=== PATIENT | female | born 1975 | race Caucasian/White ===

== ENCOUNTER → 2017-06-15 | Outpatient (CLI) | payer MEDICAID ==
--- NOTE | 2017-06-15 19:09 | MR ---
EXAMINATION TYPE: MR shoulder LT wo con DATE OF EXAM: 06/15/2017 COMPARISON: Outside left shoulder x-ray May 26, 2017 HISTORY: Pain in left shoulder for 4 months with difficulty raising over head. TECHNIQUE: Multiplanar, multisequence imaging of the left shoulder is performed without contrast. FINDINGS: Rotator Cuff: Supraspinatus and infraspinatus tendons are both intact to the attachment. Subscapulari s tendon is intact. Rotator cuff muscular bulk is maintained. Acromioclavicular Joint: There is moderate joint space loss and spurring acromioclavicular joint. Und erlying fat plane is maintained. Glenohumeral Joint: There is small to moderate glenohumeral joint effusion. History Labrum: The labrum appears grossly intact given limitation of non-arthrogram study. Biceps Tendon: The long head of biceps is in normal location within bicipital groove. Bone marrow signal: No focal abnormal marrow signal is appreciated. Other: No additional significant abnormality is appreciated. IMPRESSION: No rotator cuff or labral tear is seen. Fairly moderate degenerative changes acromioclavi cular joint without underlying impingement.
== END | disposition home or self-care (01) ==
LOC: RADMRIMAIN 16:30
PROVIDERS: ATTEND Orthopaedic Surgery
DX: M25.512 Pain in left shoulder (principal)

== ENCOUNTER 2017-06-29 09:05 | Day surgery (SDC) | payer MEDICAID ==
[2017-06-28 08:29] VITALS: BMI 40.3
--- NOTE | 2017-06-28 09:11 | HP ---
HISTORY AND PHYSICAL CHIEF COMPLAINT: Left shoulder pain. 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 She notes it is worsening. She has a difficult time with any attempted overhead use. She is having significant night symptoms. She has tried multiple medications for this. She denies any specific traumatic event. PAST MEDICAL HISTORY: Negative. PAST SURGICAL HISTORY: Negative. CURRENT MEDICATIONS: Protonix and ibuprofen along with tramadol. ALLERGIES: She denies drug allergies. FAMILY HISTORY: Significant for diabetes. SOCIAL HISTORY: Negative for current tobacco or alcohol use. REVIEW OF SYSTEMS: Sixteen-point review of systems otherwise reviewed and is noncontributory. PHYSICAL EXAMINATION: On examination, the patient is approximately 5 feet 9 inches, 274 pounds of endomorphic habitus. HEENT exam is nonfocal. Neck is supple. On examination of her left shoulder, she is tender about the anterior subacromial space. She has moderate subacromial crepitus. Active range of motion of the left shoulder, forward elevation 95 degrees, external rotation with arm at side 60 degrees, internal rotation to L1. Motor strength is 5/5 for abduction and external rotation. Impingement test and Neer test are positive. Her distal neurovascular exam appears intact in the left upper extremity. MRI report for the left shoulder from 06/15/2017 shows an intact rotator cuff. IMPRESSION: Symptomatic left shoulder adhesive capsulitis. RECOMMENDATIONS: I talked to the patient at length regarding her condition and treatment options. At this point, she is quite symptomatic and opts to proceed with manipulation under anesthesia with subacromial cortisone injection. Risks and benefits were discussed at length in layman's terms. We will likely perform that as an outpatient procedure utilizing IV sedation. She will be scheduled to start formal therapy directly after the procedure. MMODL / IJN: [id number] /
[~2017-06-29 09:05] MED LIST: DEXAMETHASONE SOD PHOSPHATE 10 MG/ML 1 ML VIAL IV ONE; MIDAZOLAM 2 MG/2 ML VIAL IV PRN; ONDANSETRON ODT 4 MG TAB PO ONE; SCOPOLAMINE 1.5MG/72HR PATCH TRANSDERM ONE
[2017-06-29 09:48] VITALS: TEMP 98.2
[2017-06-29] MEDS: LACTATED RINGERS 1,000 ML IV SCH ×2 (09:56→10:02)
[2017-06-29] MEDS ORDERED: ONDANSETRON 4 MG/2 ML VIAL IVP ONE (10:01)
[2017-06-29] MEDS ORDERED: KETOROLAC 30 MG/ML 1 ML VIAL IVP ONE (10:11)
[2017-06-29] MEDS ORDERED: PROPOFOL 10 MG/ML 20 ML VIAL IV ONE (10:28)
[2017-06-29] MEDS ORDERED: LIDOCAINE 1% INJ 10MG/ML (20 ML MDV) ONE (10:28)
[2017-06-29] MEDS ORDERED: BUPIVACAINE (PF) 0.25% 30 ML VIAL INTRAARTIC ONE (10:33)
[2017-06-29] MEDS ORDERED: methylPREDNISolone ACETATE 80 MG/ML 1 ML VIAL INTRAARTIC ONE (10:33)
--- NOTE | 2017-06-29 10:40 | P.OP ---
Date of Procedure: 06/29/17 Preoperative Diagnosis: Left shoulder adhesive capsulitis Postoperative Diagnosis: Same Procedure(s) Performed: Manipulation under anesthesia left shoulder with subacromial cortisone injection Anesthesia: MAC Surgeon: Tam Vidales Estimated Blood Loss (ml): 0 Pathology: none sent Condition: stable Disposition: PACU Indications for Procedure: The patient's a 42-year-old female who presents with progressive left shoulder pain and stiffness despite conservative measures. Clinically she was noted to have significant adhesive capsulitis. A discussion of the risks and benefits of manipulation under anesthesia with subacromial cortisone injection was made with patient. She opted to proceed. Risks of this procedure to include fracture, dislocation, possible tendon rerupture, possible recurrence of stiffness and need for subsequent procedures was discussed. Informed consent was obtained. Operative Findings: As below Description of Procedure: The patient was brought to the cover room, and after induction of IV sedation I then gently manipulated her left shoulder. First with her arm at her side obtain 70 of external rotation. Moderate adhesions were encountered. I then obtained full forward elevation. Again there were moderate adhesions encountered. I felt there was adequate pentecostal of motion at this point. The posterior shoulder was prepped with ChloraPrep. 80 mg of Depo-Medrol along with 5 mL of quarter percent Marcaine was injected into the posterior subacromial space. The patient was then monitored until fully awake. No complications were incurred. There was no blood loss.
[2017-06-29] MEDS: fentaNYL (PF) 50 MCG/ML 2 ML AMP IV PRN ×2 (10:44→10:49)
[2017-06-29] MEDS: MEPERIDINE 50 MG/ML SYRINGE IVP ONE ×2 (10:53→11:02)
[2017-06-29] MEDS ORDERED: MORPHINE SULFATE 4 MG/ML SYRINGE IVP ONE ×2 (11:11→11:21)
[2017-06-29 12:03] VITALS: BP 127/84; PULSE 62; RESP 20
== END 2017-06-29 12:15 | disposition home or self-care (01) ==
LOC: OR 09:05
PROVIDERS: ATTEND Orthopaedic Surgery
DX: M75.02 Adhesive capsulitis of left shoulder (principal); K21.9 Gastro-esophageal reflux disease without esophagitis; Z87.891 Personal history of nicotine dependence; Z79.1 Long term (current) use of non-steroidal anti-inflammatories (NSAID); Z79.891 Long term (current) use of opiate analgesic; Z79.899 Other long term (current) drug therapy
CPT/HCPCS: 23700; 81025; J2270; J1040; J1100; J2175; J2405; J2001; J3010; J1885; J2704

== ENCOUNTER → 2017-12-01 | Outpatient (CLI) | payer MEDICAID | END | disposition home or self-care (01) | LOC: RADMRIMAIN 17:43 | PROVIDERS: ATTEND Orthopaedic Surgery | DX: Z53.9 Procedure and treatment not carried out, unspecified reason (principal) ==

== ENCOUNTER 2019-10-09 13:33 | Emergency (ER) | payer MEDICAID ==
[2019-10-09 13:41] VITALS: TEMP 98
[2019-10-09] MEDS ORDERED: SODIUM CHLORIDE 0.9% 1,000 ML IV STA (14:29)
[2019-10-09] MEDS ORDERED: KETOROLAC 15 MG/ML 1 ML VIAL IVP STA (14:29)
--- NOTE | 2019-10-09 14:39 | ED ---
General Adult HPI - General Chief complaint: Abdominal Pain Stated complaint: Abd Pain Time Seen by Provider: 10/09/19 14:04 Source: patient, RN notes reviewed Mode of arrival: ambulatory Limitations: no limitations - History of Present Illness Initial comments: 44-year-old female with a past medical history of hiatal hernia, GERD, presents to the emergency department for mid left abdominal pain. Patient reports this has been ongoing for about a week and a half. Patient reports that about a week ago she started on Cipro and Flagyl because this felt like a flare up of her diverticulitis. However this has not seemed to help. She denies any diarrhea. Denies nausea vomiting. Denies alleviating or aggravating factors. Patient denies fevers or chills. She denies radiating pain to the chest or shortness of breath.Patient has no other complaints at this time including shortness of breath, chest pain, headache, or visual changes. - Related Data Home Medications Medication Instructions Recorded Confirmed Esomeprazole Magnesium [NexIUM 22.3 mg PO DAILY 08/07/15 06/29/17 24Hr] Cholecalciferol (Vitamin D3) 2,000 unit PO DAILY 06/28/17 06/29/17 [Vitamin D3] Magnesium 200 mg PO DAILY 06/28/17 06/29/17 Multivitamins, Thera [Multivitamin 1 tab PO DAILY 06/28/17 06/29/17 (formulary)] Naproxen Sodium [Aleve] 220 mg PO Q12HR 06/28/17 06/29/17 traMADol HCl [Ultram] 50 mg PO Q6HR PRN 06/28/17 06/29/17 Allergies Allergy/AdvReac Type Severity Reaction Status Date / Time No Known Allergies Allergy Verified 10/09/19 13:39 Review of Systems ROS Statement: Those systems with pertinent positive or pertinent negative responses have been documented in the HPI. ROS Other: All systems not noted in ROS Statement are negative. Past Medical History Past Medical History: GERD/Reflux Additional Past Medical History / Comment(s): HIATAL HERNIA History of Any Multi-Drug Resistant Organisms: None Reported Past Surgical History: Tonsillectomy Additional Past Surgical History / Comment(s): Colonoscopy Past Anesthesia/Blood Transfusion Reactions: No Reported Reaction Past Psychological History: No Psychological Hx Reported Past Alcohol Use History: Occasional Past Drug Use History: None Reported - Past Family History Mother Family Medical History: No Reported History General Exam Limitations: no limitations General appearance: alert, in no apparent distress Head exam: Present: atraumatic, normocephalic, normal inspection Eye exam: Present: normal appearance, PERRL, EOMI. Absent: scleral icterus, conjunctival injection, periorbital swelling ENT exam: Present: normal exam, mucous membranes moist Neck exam: Present: normal inspection, full ROM. Absent: tenderness, meningismus, lymphadenopathy Respiratory exam: Present: normal lung sounds bilaterally. Absent: respiratory distress, wheezes, rales, rhonchi, stridor Cardiovascular Exam: Present: regular rate, normal rhythm, normal heart sounds. Absent: systolic murmur, diastolic murmur, rubs, gallop, clicks GI/Abdominal exam: Present: soft, tenderness (tenderness noted to the left mid abdomen however no guarding or rebound.), normal bowel sounds. Absent: distended, guarding, rebound, rigid Course Vital Signs 10/09/19 13:37 Temperature 98.0 F Pulse Rate 86 Respiratory 18 Rate Blood Pressure 153/103 O2 Sat by Pulse 97 Oximetry EKG Findings - EKG Comments: EKG Findings:: normal sinus rhythm, ventricular rate 72, IA interval 164, QTc 400 Medical Decision Making - Medical Decision Making Vitals are stable. Patient has minimal abdominal tenderness noted in the mid to upper left abdomen. CBC is unremarkable. CMP unremarkable. Troponin is negative. Urinalysis does not show any obvious evidence of infection and is contaminated with squamous cells. Patient does not have any dysuria and is a lready on Cipro. CT abdomen and pelvis with contrast was obtained which showed a left ovarian cystic lesion. Bowels do not show any evidence of inflammation. Discussed findings with patient. She will continue Cipro and Flagyl as prescribed by primary care in case this has been treating a diverticulitis that has improved since initiation. I did discuss the ovarian cyst. I recommended she follow up with her primary care regarding all findings and to return here if she has any worsening symptoms. On evaluation patient is feeling much better and is comfortable with discharge home. - Lab Data Result diagrams: 10/09/19 14:38 10/09/19 14:38 Lab Results 10/09/19 10/09/19 10/09/19 Range/Units 14:38 14:38 14:38 WBC 10.2 (3.8-10.6) k/uL RBC 4.96 (3.80-5.40) m/uL Hgb 13.7 (11.4-16.0) gm/dL Hct 41.4 (34.0-46.0) % MCV 83.5 (80.0-100.0) fL MCH 27.6 (25.0-35.0) pg MCHC 33.1 (31.0-37.0) g/dL RDW 13.7 (11.5-15.5) % Plt Count 422 (150-450) k/uL Neutrophils % 71 % Lymphocytes % 21 % Monocytes % 5 % Eosinophils % 2 % Basophils % 1 % Neutrophils # 7.2 (1.3-7.7) k/uL Lymphocytes # 2.1 (1.0-4.8) k/uL Monocytes # 0.5 (0-1.0) k/uL Eosinophils # 0.2 (0-0.7) k/uL Basophils # 0.1 (0-0.2) k/uL Sodium 137 (137-145) mmol/L Potassium 4.2 (3.5-5.1) mmol/L Chloride 109 H (98-107) mmol/L Carbon Dioxide 18 L (22-30) mmol/L Anion Gap 10 mmol/L BUN 9 (7-17) mg/dL Creatinine 0.65 (0.52-1.04) mg/dL Est GFR (CKD-EPI)AfAm >90 (>60 ml/min/1.73 sqM) Est GFR (CKD-EPI)NonAf >90 (>60 ml/min/1.73 sqM) Glucose 111 H (74-99) mg/dL Plasma Lactic Acid Cyril (0.7-2.0) mmol/L Calcium 9.6 (8.4-10.2) mg/dL Total Bilirubin 0.6 (0.2-1.3) mg/dL AST 23 (14-36) U/L ALT 16 (4-34) U/L Alkaline Phosphatase 85 (38-126) U/L Troponin I (0.000-0.034) ng/mL Total Protein 7.5 (6.3-8.2) g/dL Albumin 4.5 (3.5-5.0) g/dL Amylase 47 (30-110) U/L Lipase 49 (23-300) U/L Urine Color Judy Urine Appearance Clear (Clear) Urine pH 6.0 (5.0-8.0) Ur Specific Mcgraw 1.030 (1.001-1.035) Urine Protein 1+ H (Negative) Urine Glucose (UA) Negative (Negative) Urine Ketones Negative (Negative) Urine Blood Negative (Negative) Urine Nitrite Negative (Negative) Urine Bilirubin Negative (Negative) Urine Urobilinogen 2.0 (<2.0) mg/dL Ur Leukocyte Esterase Large (Negative) Urine RBC 1 (0-5) /hpf Urine WBC 8 H (0-5) /hpf Ur Squamous Epith Cells 6 H (0-4) /hpf Urine Bacteria Occasional H (None) /hpf Urine Mucus Moderate H (None) /hpf 10/09/19 10/09/19 Range/Units 14:38 14:38 WBC (3.8-10.6) k/uL RBC (3.80-5.40) m/uL Hgb (11.4-16.0) gm/dL Hct (34.0-46.0) % MCV (80.0-100.0) fL MCH (25.0-35.0) pg MCHC (31.0-37.0) g/dL RDW (11.5-15.5) % Plt Count (150-450) k/uL Neutrophils % % Lymphocytes % % Monocytes % % Eosinophils % % Basophils % % Neutrophils # (1.3-7.7) k/uL Lymphocytes # (1.0-4.8) k/uL Monocytes # (0-1.0) k/uL Eosinophils # (0-0.7) k/uL Basophils # (0-0.2) k/uL Sodium (137-145) mmol/L Potassium (3.5-5.1) mmol/L Chloride (98-107) mmol/L Carbon Dioxide (22-30) mmol/L Anion Gap mmol/L BUN (7-17) mg/dL Creatinine (0.52-1.04) mg/dL Est GFR (CKD-EPI)AfAm (>60 ml/min/1.73 sqM) Est GFR (CKD-EPI)NonAf (>60 ml/min/1.73 sqM) Glucose (74-99) mg/dL Plasma Lactic Acid Cyril 1.0 (0.7-2.0) mmol/L Calcium (8.4-10.2) mg/dL Total Bilirubin (0.2-1.3) mg/dL AST (14-36) U/L ALT (4-34) U/L Alkaline Phosphatase (38-126) U/L Troponin I <0.012 (0.000-0.034) ng/mL Total Protein (6.3-8.2) g/dL Albumin (3.5-5.0) g/dL Amylase (30-110) U/L Lipase (23-300) U/L Urine Color Urine Appearance (Clear) Urine pH (5.0-8.0) Ur Specific Mcgraw (1.001-1.035) Urine Protein (Negative) Urine Glucose (UA) (Negative) Urine Ketones (Negative) Urine Blood (Negative) Urine Nitrite (Negative) Urine Bilirubin (Negative) Urine Urobilinogen (<2.0) mg/dL Ur Leukocyte Esterase (Negative) Urine RBC (0-5) /hpf Urine WBC (0-5) /hpf Ur Squamous Epith Cells (0-4) /hpf Urine Bacteria (None) /hpf Urine Mucus (None) /hpf Disposition Clinical Impression: Abdominal pain, Ovarian cyst Disposition: HOME SELF-CARE Condition: Good Instructions (If sedation given, give patient instructions): Abdominal Pain (ED) Additional Instructions: please continue antibiotics as given by your primary care provider. Please follow-up with primary care regarding abdominal pain as well as finding of ovarian cyst. If you have any worsening symptoms return to the emergency room. Is patient prescribed a controlled substance at d/c from ED?: No Referrals: Dunia Paula MD [Primary Care Provider] - 1-2 days Time of Disposition: 15:57
[2019-10-09 14:51] LABS: Basophils # (A) 0.1 k/uL (0-0.2); Basophils % (A) 1 %; Eosinophils # (A) 0.2 k/uL (0-0.7); Eosinophils % (A) 2 %; HCT 41.4 % (34.0-46.0); HGB 13.7 gm/dL (11.4-16.0); Lymphocytes # (A) 2.1 k/uL (1.0-4.8); Lymphocytes % (A) 21 %; MCH 27.6 pg (25.0-35.0); MCHC 33.1 g/dL (31.0-37.0); MCV 83.5 fL (80.0-100.0); Monocytes # (A) 0.5 k/uL (0-1.0); Monocytes % (A) 5 %; Neutrophils # (A) 7.2 k/uL (1.3-7.7); Neutrophils % (A) 71 %; Platelet Count 422 k/uL (150-450); RBC 4.96 m/uL (3.80-5.40); RDW 13.7 % (11.5-15.5); WBC 10.2 k/uL (3.8-10.6)
[2019-10-09 14:57] LABS: Appearance,Urine Clear (Clear); Color,Urine Amber; Glucose,Urine (UA) Negative (Negative); Ketones,Urine Negative (Negative); Protein,Urine 1+ (Negative)
[2019-10-09 14:58] LABS: Bilirubin,Urine Negative (Negative); Blood,Urine Negative (Negative); Leukocyte Esterase,Urine Large (Negative); Nitrite,Urine Negative (Negative)
[2019-10-09 14:59] LABS: ALT 16 U/L (4-34); AST 23 U/L (14-36); African American GFR (CKD) >90 (>60 ml/min/1.73 sqM); Albumin 4.5 g/dL (3.5-5.0); Alkaline Phosphatase 85 U/L (38-126); Amylase 47 U/L (30-110); Anion Gap 10 mmol/L; Blood Urea Nitrogen 9 mg/dL (7-17); Calcium 9.6 mg/dL (8.4-10.2); Carbon Dioxide 18 mmol/L (22-30); Chloride 109 mmol/L (98-107); Glucose 111 mg/dL (74-99); Lipase 49 U/L (23-300); Non-African American GFR(CKD) >90 (>60 ml/min/1.73 sqM); Potassium 4.2 mmol/L (3.5-5.1); Sodium 137 mmol/L (137-145); Total Bilirubin 0.6 mg/dL (0.2-1.3); Total Protein 7.5 g/dL (6.3-8.2)
[2019-10-09 15:04] LABS: Bacteria,Urine Occasional /hpf; Mucus,Urine Moderate /hpf; RBC,Urine 1 /hpf (0-5); Squamous Epithelial Cell,Urine 6 /hpf (0-4); WBC,Urine 8 /hpf (0-5)
--- NOTE | 2019-10-09 15:19 | CT ---
EXAMINATION TYPE: CT abdomen pelvis w con DATE OF EXAM: 10/09/2019 COMPARISON: July 25, 2015 HISTORY: Generalized abdominal pain. CT DLP: 3024.4 mGycm CONTRAST: CT scan of the abdomen and pelvis is performed without Oral Contrast and with IV Contrast, patient in jected with 100 mL of Isovue 300. FINDINGS: LUNG BASES-: No visible nodule. No infiltrate. LIVER/GB: No calcified gallstones. No space occupying hepatic lesion. Biliary tree is of normal ca liber. PANCREAS: No inflammation. No distinct mass. SPLEEN: No splenic enlargement. No lesion seen. ADRENALS: No nodule. No thickening. KIDNEYS/BLADDER: No hydronephrosis. No nephrolithiasis. No distinct renal mass. Urinary bladder g rossly unremarkable. BOWEL: Normal appendix. Normal bowel caliber. No inflammation. GENITAL ORGANS: 3.3 cm left ovarian cystic lesion is noted. The right ovary and uterus are unremarka ble. LYMPH NODES: No greater than 1cm abdominal or pelvic lymph nodes are appreciated. AORTA: No significant abnormality. OSSEOUS STRUCTURES: No significant abnormality is seen. OTHER: No significant additional abnormality is seen. IMPRESSION: 1. Left ovarian cystic lesion as noted. Otherwise unremarkable study.
[2019-10-09 16:30] VITALS: BP 123/86; PULSE 86; RESP 16
== END 2019-10-09 16:25 | disposition home or self-care (01) ==
LOC: EC 13:33
DX: N83.202 Unspecified ovarian cyst, left side (principal); K21.9 Gastro-esophageal reflux disease without esophagitis; Z79.899 Other long term (current) drug therapy; Z87.19 Personal history of other diseases of the digestive system
CPT/HCPCS: 36415; 93005; 80053; 82150; 83605; 83690; 84484; 85025; 81001; 74177; 99284; 96374; 96361; J1885; Q9967

== ENCOUNTER → 2020-08-09 | Outpatient (CLI) | payer MEDICAID ==
[2020-08-09 13:33] LABS: Basophils % (A) 0 %; Eosinophils # (A) 0.1 k/uL (0-0.7); Eosinophils % (A) 2 %; HCT 35.8 % (34.0-46.0); HGB 11.7 gm/dL (11.4-16.0); Lymphocytes # (A) 1.5 k/uL (1.0-4.8); Lymphocytes % (A) 30 %; MCH 27.7 pg (25.0-35.0); MCHC 32.7 g/dL (31.0-37.0); MCV 84.8 fL (80.0-100.0); Mean Platelet Volume 7.6; Monocytes # (A) 0.3 k/uL (0-1.0); Monocytes % (A) 5 %; Neutrophils # (A) 3.1 k/uL (1.3-7.7); Neutrophils % (A) 61 %; Platelet Count 350 k/uL (150-450); RBC 4.22 m/uL (3.80-5.40); RDW 14.2 % (11.5-15.5); WBC 5.1 k/uL (3.8-10.6)
== END | disposition home or self-care (01) ==
LOC: LABPAT 13:05
PROVIDERS: ATTEND Obstetrics & Gynecology
DX: Z01.810 Encounter for preprocedural cardiovascular examination (principal); Z01.812 Encounter for preprocedural laboratory examination; N92.0 Excessive and frequent menstruation with regular cycle; I10 Essential (primary) hypertension; N94.6 Dysmenorrhea, unspecified
CPT/HCPCS: 36415; 85025

== ENCOUNTER 2020-08-13 07:55 | Day surgery (SDC) | payer MEDICAID ==
[2020-08-08 16:17] VITALS: BMI 45.8
[~2020-08-13 07:55] MED LIST changes: -DEXAMETHASONE SOD PHOSPHATE 10 MG/ML 1 ML VIAL IV ONE; +DEXAMETHASONE SOD PHOSPHATE 4 MG/ML 1 ML VIAL IV ONE; +HYDROmorphone 0.5 MG/0.5 ML SYRINGE IVP PRN; +LACTATED RINGERS 1,000 ML IV SCH; +ONDANSETRON 4 MG/2 ML VIAL IVP ONE; -ONDANSETRON ODT 4 MG TAB PO ONE; +Pre Op ABX Message 1 EACH MISC MISCELLANE ONE
[2020-08-13] MEDS ORDERED: LIDOCAINE 1% (10MG/ML) FOR IV START INTRADERMA ONE (08:25)
[2020-08-13] MEDS ORDERED: KETOROLAC 15 MG/ML 1 ML VIAL ONE (08:40)
[2020-08-13] MEDS ORDERED: ALBUTEROL HFA INHALER INHALATION ONE (08:40)
[2020-08-13] MEDS ORDERED: PROPOFOL 10 MG/ML 20 ML VIAL IV ONE (08:40)
[2020-08-13] MEDS ORDERED: fentaNYL (PF) 50 MCG/ML 2 ML AMP ONE (08:40)
[2020-08-13] MEDS ORDERED: HYDROmorphone (PF) 1 MG/ML ONE (08:40)
[2020-08-13] MEDS ORDERED: MIDAZOLAM 2 MG/2 ML VIAL ONE (08:40)
[2020-08-13] MEDS ORDERED: LIDOCAINE 1% INJ 10MG/ML (20 ML MDV) ONE (08:40)
[2020-08-13] MEDS ORDERED: SUCCINYLCHOLINE CHLORIDE 100 MG/5 ML SYR IV ONE (08:40)
--- NOTE | 2020-08-13 09:15 | P.OP ---
Date of Procedure: 08/13/20 Preoperative Diagnosis: Menorrhagia, dysmenorrhea Postoperative Diagnosis: Endometrial polyps Procedure(s) Performed: Hysteroscopy, dilatation and curettage, polypectomy, NovaSure endometrial ablation Anesthesia: STUART Surgeon: Keturah Izquierdo Estimated Blood Loss (ml): 10 IV fluids (ml): 400 Urine output (ml): 50 Pathology: other (Polyps and endometrial curettings) Condition: stable Disposition: PACU Operative Findings: Small endometrial polyps, negative adnexa to palpation. Description of Procedure: Patient is brought to the operating suite where a general anesthetic is administered without difficulty. The appropriate timeout is performed to assure the proper patient and procedural identification. Urine hCG is negative. Patient is placed in the dorsal lithotomy position, the cervix, vagina, and perineal bodies are all prepped and draped in usual sterile fashion. Examination under anesthesia reveals a small anteverted uterus, negative adnexa bilaterally. Weighted speculum was placed into the vagina and the bladder is drained for approximately 50 mL of clear yellow urine. Anterior lip of the cervix is grasped with a double-tooth tenaculum. Cervix sounds to a depth of 9 cm in the anteverted position. The cervix is gently and systematically dilated using Hanks dilators. Hysteroscope was placed and the cavity is infused with sterile saline. Inspection of the cavity reveals several small polyps, no other fibroids septa or defects. A medium sharp curette is then used and the polyps are removed along with a gentle uterine curettage, sent to pathology for evaluation. The NovaSure wand is then placed and seated. Uterine length of 6.0 cm, width of 3.7 cm is calibrated. The machine is enabled. For 73 seconds with a power of 122 W the procedure is carried out. When the machine shuts off the wand is reduced and removed. Hysteroscope is now placed and the cavity appears to be thoroughly and uniformly blanched. Instrumentation is removed from the cervix and vagina. All sponge needle and enhancement counts are correct. Patient is brought back to recovery room in very good condition with a blood pressure 112/59, pulse 77, respirations 12, 95% O2 saturation. Toradol is given prior to leaving the operative room. Patient will follow-up with me in the office in 2 weeks.
[2020-08-13 09:24] VITALS: RESP 16; TEMP 96.8
[2020-08-13 09:48] VITALS: BP 107/75
[2020-08-13 09:59] VITALS: PULSE 86
== END 2020-08-13 10:35 | disposition home or self-care (01) ==
LOC: OR 07:55
PROVIDERS: ATTEND Obstetrics & Gynecology
DX: N92.0 Excessive and frequent menstruation with regular cycle (principal); N94.6 Dysmenorrhea, unspecified; N84.0 Polyp of corpus uteri; I10 Essential (primary) hypertension; F17.210 Nicotine dependence, cigarettes, uncomplicated; G47.33 Obstructive sleep apnea (adult) (pediatric); K21.9 Gastro-esophageal reflux disease without esophagitis; Z87.19 Personal history of other diseases of the digestive system; Z87.448 Personal history of other diseases of urinary system; Z90.89 Acquired absence of other organs; Z82.49 Family history of ischemic heart disease and other diseases of the circulatory system; Z83.3 Family history of diabetes mellitus; Z79.1 Long term (current) use of non-steroidal anti-inflammatories (NSAID); Z79.899 Other long term (current) drug therapy; Z88.8 Allergy status to other drugs, medicaments and biological substances
CPT/HCPCS: 81025; 88305; 58563; J2250; J1100; J2405; J2001; J3010; J1170; J1885; J0330; J2704

== ENCOUNTER → 2021-02-03 | Outpatient (CLI) | payer MEDICAID ==
[2021-02-04 05:12] LABS: African American GFR (CKD) 101.8 (60.0-200.0); Blood Urea Nitrogen 8.8 mg/dL (9.0-27.0); Non-African American GFR(CKD) 87.8 (60.0-200.0); T4, Free (Free Thyroxine) 1.2 ng/dL (0.800-1.800)
[2021-02-04 05:13] LABS: Anion Gap 16.8 mmol/L (10.00-18.00); Carbon Dioxide 19.2 mmol/L (20.0-27.5); Potassium 4.4 mmol/L (3.5-5.5)
== END | disposition home or self-care (01) ==
LOC: LABWHC1 12:06
PROVIDERS: ATTEND Physician Assistant
DX: I10 Essential (primary) hypertension (principal); E66.9 Obesity, unspecified; R73.9 Hyperglycemia, unspecified
CPT/HCPCS: 36415; 80051; 82565; 83036; 84439; 84443; 84520

== ENCOUNTER → 2023-02-26 | Outpatient (CLI) | payer MEDICAID ==
--- NOTE | 2023-02-26 09:36 | MR ---
EXAMINATION TYPE: MR knee RT wo con DATE OF EXAM: 02/26/2023 COMPARISON: Outside right knee x-ray 2 days earlier HISTORY: Rt knee outer pain since January 28. TECHNIQUE: Multiplanar, multisequence images of the knee is performed without IV contrast. FINDINGS: MEDIAL MENISCUS: Horizontally oriented increased signal involves anterior and posterior horns without definitive extension to articular surface. LATERAL MENISCUS: Anterior and posterior horns are intact without tear. CRUCIATE LIGAMENTS: The anterior and posterior cruciate ligaments are intact and unremarkable. COLLATERAL LIGAMENTS: The medial collateral ligament and lateral collateral ligament complex are inta ct and unremarkable. EXTENSOR MECHANISM: Visualized quadriceps and patellar tendons are intact. EFFUSION: Fairly moderate size suprapatellar joint effusion. POPLITEAL CYST: No popliteal/mora cyst. TRICOMPARTMENT SPACES: Mild to moderate narrowing patellofemoral compartment. Mild narrowing medial t ibiofemoral compartment. Mild tricompartment joint space spurring. CARTILAGE: Fissuring and cartilaginous loss along the posterior patellar pole. Additional some cartil aginous loss particularly anterior medial tibiofemoral compartment. BONE MARROW SIGNAL: Small focus of T2 hyperintensity in the posterior patellar pole at site of full-t hickness cartilaginous loss sagittal image 20 for reference. OTHER: No additional significant abnormality is appreciated. IMPRESSION: 1. [id number] tricompartment degenerative changes are present as detailed above. 2. At least intrasubstance tear through the anterior and posterior horns of the medial meniscus, no d efinitive full-thickness meniscal tear. 3. Moderate-sized suprapatellar joint effusion.
== END | disposition home or self-care (01) ==
LOC: RADMRIMAIN 08:28
PROVIDERS: ATTEND Orthopaedic Surgery
DX: M17.11 Unilateral primary osteoarthritis, right knee (principal); M23.251 Derangement of posterior horn of lateral meniscus due to old tear or injury, right knee; M25.461 Effusion, right knee

== ENCOUNTER 2023-05-05 10:00 | Day surgery (SDC) | payer MEDICAID ==
--- NOTE | 2023-05-04 11:03 | HP ---
HISTORY AND PHYSICAL DATE OF SURGERY: 05/05/2023. HISTORY OF PRESENT ILLNESS: Luidmila Rico is a 48-year-old patient seen with progressive right knee pain. We discussed options regarding treatment. She elected to proceed with right knee arthroscopy. Consent was obtained. PAST MEDICAL HISTORY: Dtz-utkpvhv-vewrzpzve diabetes, hypertension. PAST SURGICAL HISTORY: Manipulation under anesthesia, left shoulder. DAILY MEDICATIONS: 1. Benicar. 2. Mounjaro. 3. Ibuprofen. ALLERGIES: None. SOCIAL HISTORY: She denies tobacco use. PHYSICAL EVALUATION OF THE RIGHT KNEE: Range of motion is -1/2 to 120 degrees. Mild effusion. Tenderness along the medial and lateral joint lines. Positive medial Marc's. Positive lateral Marc's. Ligaments stable. Hip rotation without pain. Distal neurovascular exam is intact. IMAGING STUDIES: Radiographs of the right knee revealed mild patellofemoral compartment osteoarthritis. MRI of the right knee revealed medial meniscal tear and mild osteoarthritic changes. IMPRESSION: 1. Internal derangement of right knee with medial meniscal tear. 2. Epi-ynggfln-vscuaucfc diabetes. PLAN: Right knee arthroscopy with partial medial meniscectomy and debridement. MMODL / IJN: [id number] /
[~2023-05-05 10:00] MED LIST changes: -DEXAMETHASONE SOD PHOSPHATE 4 MG/ML 1 ML VIAL IV ONE; -LACTATED RINGERS 1,000 ML IV SCH; +LIDOCAINE 1% (10MG/ML) FOR IV START INTRADERMA PRN; -MIDAZOLAM 2 MG/2 ML VIAL IV PRN; -ONDANSETRON 4 MG/2 ML VIAL IVP ONE; -Pre Op ABX Message 1 EACH MISC MISCELLANE ONE; -SCOPOLAMINE 1.5MG/72HR PATCH TRANSDERM ONE; +droPERidol 5 MG/2 ML VIAL IVP ONE
[2023-05-05] MEDS: ONDANSETRON 4 MG/2 ML VIAL ONE (10:50)
[2023-05-05] MEDS: LACTATED RINGERS 1,000 ML IV SCH (10:50)
[2023-05-05] MEDS: DEXAMETHASONE SOD PHOSPHATE 4 MG/ML 1 ML VIAL IVP ONE (10:50)
[2023-05-05 11:13] LABS: Glucose,Whole Blood 93 mg/dL (70-110)
[2023-05-05] MEDS ORDERED: fentaNYL (PF) 50 MCG/ML 2 ML AMP ONE (11:34)
[2023-05-05] MEDS ORDERED: KETOROLAC 15 MG/ML 1 ML VIAL ONE (11:34)
[2023-05-05] MEDS ORDERED: LIDOCAINE 1% INJ 10MG/ML (20 ML MDV) ONE (11:34)
[2023-05-05] MEDS ORDERED: MIDAZOLAM 2 MG/2 ML VIAL ONE (11:34)
[2023-05-05] MEDS ORDERED: HYDROmorphone (PF) 1 MG/ML ONE (11:34)
[2023-05-05] MEDS ORDERED: PROPOFOL 10 MG/ML 20 ML VIAL IV ONE (11:34)
[2023-05-05] MEDS: BUPIVACAINE (PF) 0.25% 30 ML VIAL SQ ONE ×2 (11:54→12:11)
--- NOTE | 2023-05-05 12:24 | P.OP ---
Date of Procedure: 05/05/23 Preoperative Diagnosis: Internal derangement right knee Postoperative Diagnosis: 1. Tear medial and lateral meniscus right knee 2. Grade IV chondromalacia medial femoral condyle right knee 3. Reactive synovitis medial, lateral and suprapatellar compartments right knee 4. Grade II chondromalacia patella right knee Procedure(s) Performed: 1. Arthroscopic partial medial and lateral meniscectomy right knee 2. Arthroscopic microfracture medial femoral condyle right knee 3. Arthroscopic partial synovectomy medial, lateral and suprapatellar compartments right knee 4. Arthroscopic chondroplasty patella right knee Anesthesia: CLIFFA, local Surgeon: Tucker Daley Estimated Blood Loss (ml): 7 Pathology: none sent Condition: stable Disposition: PACU Indications for Procedure: 48-year-old patient seen with progressive right knee pain. After having treatment options discussed, she elected to proceed with arthroscopy. Operative Findings: See description of procedure Description of Procedure: Patient was taken to the operative suite. Patient underwent a general anesthetic by the department of anesthesia. Patient was given preoperative antibiotics. The right lower extremity was placed in a well-padded arthroscopic leg arias. The right leg was prepped and draped in the normal sterile orthopedic fashion. A lateral parapatellar and suprapatellar incision was made. Trochars were inserted. Arthroscopy was initiated. Suprapatellar pouch revealed diffuse thick reactive synovitis. The patellofemoral joint appeared to articular congruently. There was grade II chondromalacia of the patella with some osteochondral flap tears present. The scope was guided into the medial gutter. No loose bodies or plica were identified. The scope was then guided into the medial compartment. A medial parapatellar incision was made. Trocar inserted followed by probe. There was a complex tear involving the posterior horn of the medial meniscus. There were grade III/IV chondromalacia changes along the medial femoral condyle with some large osteochondral flap tears. There was thick reactive synovitis anteriorly. There were grade III chondromalacia changes of the tibial plateau as well. I performed a partial medial meniscectomy getting down to stable meniscal tissue. I performed a chondroplasty of the medial femoral condyle getting down to stable osteochondral tissue. I performed a partial synovectomy decompressing the reactive synovitis. I did note an area of grade IV chondromalacia on the weightbearing surface the medial femoral condyle measuring 1 x 3 cm. I introduced a microfracture awl and performed a microfracture to 2 separate areas of the exposed bone penetrating the bone with resultant bleeding at the microfracture sites. The residual meniscus was probed and was found to be stable. The residual osteochondral surface was stable. There was good decompression of the synovitis. Scope and probe were then guided into the intercondylar notch. Cruciates were identified, probed and found to be stable. The scope and probe were then guided into lateral compartment. Was a radial tear involving the mid bilateral meniscus. There were grade I chondromalacia changes lateral compartment with no tears. There was some thick reactive synovitis anteriorly. I performed a partial lateral meniscectomy getting down to stable meniscal tissue. I performed a partial synovectomy decompressing the reactive synovitis. The residual meniscus was stable. There was good decompression of the synovitis. The scope was in guided back into the suprapatellar compartment. I introduced a motorized shaver into the suprapatellar compartment. I debrided some piecemeal fragments of meniscus that I encountered. I performed a chondroplasty of the patella getting down to stable osteochondral tissue. I performed a partial synovectomy decompressing the reactive synovitis. The residual osteochondral surface was stable. There was good decompression of the synovitis. I took 1 more look around the entire knee, no residual debris. Instruments were now removed from the joint. The joint was infiltrated with .25% Marcaine. Steri-Strips were applied to the portal sites. Sterile dressings were applied. The patient was placed into a SEBASTIAN hose. No tourniquet was utilized. The patient was awakened, transferred to a bed and taken to recovery stable satisfactory condition.
[2023-05-05 12:31] LABS: Glucose,Whole Blood 97 mg/dL (70-110)
[2023-05-05 12:51] VITALS: PULSE 57; TEMP 97.6
[2023-05-05 13:16] LABS: Glucose,Whole Blood 94 mg/dL (70-110)
[2023-05-05 13:25] VITALS: BP 100/64; RESP 19
== END 2023-05-05 13:48 | disposition home or self-care (01) ==
LOC: OR 10:00
PROVIDERS: ATTEND Orthopaedic Surgery
DX: S83.281A Other tear of lateral meniscus, current injury, right knee, initial encounter (principal); S83.241A Other tear of medial meniscus, current injury, right knee, initial encounter; M65.861 Other synovitis and tenosynovitis, right lower leg; M94.261 Chondromalacia, right knee; I10 Essential (primary) hypertension; E11.9 Type 2 diabetes mellitus without complications; Z79.899 Other long term (current) drug therapy; X58.XXXA Exposure to other specified factors, initial encounter
CPT/HCPCS: 29880; 29879; 29821; 81025; J2250; J1100; J0690; J2405; J2001; J3010; J1170; J1885; J2704; J0665

== ENCOUNTER 2023-09-03 13:56 | Emergency (ER) | payer MEDICAID ==
[2023-09-03] MEDS: SODIUM CHLORIDE 0.9% 1,000 ML IV STA (14:30)
[2023-09-03 14:47] LABS: Basophils % (A) 1 %; Eosinophils # (A) 0.1 k/uL (0-0.7); Eosinophils % (A) 1 %; HCT 37.6 % (34.0-46.0); HGB 12.8 gm/dL (11.4-16.0); Lymphocytes # (A) 2.1 k/uL (1.0-4.8); Lymphocytes % (A) 33 %; MCH 30.6 pg (25.0-35.0); MCHC 33.9 g/dL (31.0-37.0); MCV 90.4 fL (80.0-100.0); Mean Platelet Volume 7.4; Monocytes # (A) 0.3 k/uL (0-1.0); Monocytes % (A) 5 %; Neutrophils # (A) 3.8 k/uL (1.3-7.7); Neutrophils % (A) 59 %; Platelet Count 313 k/uL (150-450); RBC 4.17 m/uL (3.80-5.40); RDW 12.6 % (11.5-15.5); WBC 6.5 k/uL (3.8-10.6)
[2023-09-03 15:00] LABS: ALT 14 U/L (4-34); AST 18 U/L (14-36); African American GFR (CKD) >90 (>60 ml/min/1.73 sqM); Albumin 4.2 g/dL (3.5-5.0); Alkaline Phosphatase 40 U/L (38-126); Amylase 50 U/L (30-110); Anion Gap 5 mmol/L; Blood Urea Nitrogen 15 mg/dL (7-17); Calcium 9.4 mg/dL (8.4-10.2); Carbon Dioxide 25 mmol/L (22-30); Chloride 108 mmol/L (98-107); Glucose 107 mg/dL (74-99); Lipase 87 U/L (23-300); Non-African American GFR(CKD) >90 (>60 ml/min/1.73 sqM); Potassium 3.7 mmol/L (3.5-5.1); Sodium 138 mmol/L (137-145); Total Bilirubin 0.6 mg/dL (0.2-1.3); Total Protein 6.5 g/dL (6.3-8.2)
--- NOTE | 2023-09-03 15:07 | ED ---
Abdominal Pain HPI - General Chief Complaint: Abdominal Pain Stated Complaint: abd pain Time Seen by Provider: 09/03/23 15:03 Source: patient, RN notes reviewed Mode of arrival: ambulatory Limitations: no limitations - History of Present Illness Initial Comments: 48-year-old female presented to ER with a chief complaint of left lower quadrant abdominal pain. Patient reports this started August 15 and has been intermittent in nature. She describes it as a sharp abdominal pain especially in her left lower quadrant. She believes it is a diverticulitis flareup as she has a history. Patient was seen at urgent care and prescribed Augmentin and Flagyl. Patient states she finished her antibiotics a couple of days ago. She reports pain has not improved finishing antibiotics which brought her to the ER today. She does admit to recent loose stools but believes this is from the Flagyl use. Reports a normal appetite. She denies any fevers, chills, night sweats nausea, vomiting, constipation or urinary complaints. Denies any cough, congestion, chest pain, shortness of breath or peripheral edema. - Related Data Home Medications Medication Instructions Recorded Confirmed Acetaminophen Tab [Tylenol Tab] 500 mg PO DIRECTED PRN 08/08/20 04/29/23 Olmesartan Medoxomil [Benicar] 20 mg PO DAILY 08/08/20 04/29/23 Omeprazole [PriLOSEC] 40 mg PO DAILY 08/08/20 04/29/23 Tirzepatide [Mounjaro] 7.5 mg SQ SA 04/29/23 04/29/23 Previous Rx's Medication Instructions Recorded HYDROcodone/APAP 5-325MG [Fajardo 1 tab PO Q6HR PRN #12 tab 05/05/23 5-325] Allergies Allergy/AdvReac Type Severity Reaction Status Date / Time losartan Allergy Unknown LISTED ON Verified 05/05/23 10:39 BOARDING SLIP FOR OR FROM DR CHAPPELL Review of Systems ROS Statement: Those systems with pertinent positive or pertinent negative responses have been documented in the HPI. ROS Other: All systems not noted in ROS Statement are negative. Past Medical History Past Medical History: Diabetes Mellitus, GERD/Reflux, Hypertension Additional Past Medical History / Comment(s): HIATAL HERNIA History of Any Multi-Drug Resistant Organisms: None Reported Past Surgical History: Orthopedic Surgery, Tonsillectomy, Uterine Ablation Additional Past Surgical History / Comment(s): Colonoscopy shoulder manipulation for frozen shoulder on left Past Anesthesia/Blood Transfusion Reactions: No Reported Reaction Past Psychological History: No Psychological Hx Reported Smoking Status: Former smoker - Past Family History Mother Family Medical History: No Reported History General Exam Limitations: no limitations General appearance: alert, in no apparent distress Respiratory exam: Present: normal lung sounds bilaterally. Absent: respiratory distress, wheezes, rales, rhonchi, stridor Cardiovascular Exam: Present: regular rate, normal rhythm, normal heart sounds. Absent: systolic murmur, diastolic murmur, rubs, gallop, clicks GI/Abdominal exam: Present: soft, tenderness (Left lower quadrant), normal bowel sounds Skin exam: Present: warm, dry, intact, normal color. Absent: rash Course Vital Signs 09/03/23 14:02 Temperature 97.6 F Pulse Rate 69 Respiratory 16 Rate Blood Pressure 124/79 O2 Sat by Pulse 97 Oximetry Medical Decision Making - Medical Decision Making Was pt. sent in by a medical professional or institution (, PA, SURVEYING OR SPATIAL SCIENCE TECHNICIAN, urgent care, hospital, or skilled nursing...) When possible be specific @ -No Did you speak to anyone other than the patient for history (EMS, parent, family, police, friend...)? What history was obtained from this source @ -No Did you review nursing and triage notes (agree or disagree)? Why? @ -I reviewed and agree with nursing and triage notes Were old charts reviewed (outside hosp., previous admission, EMS record, old EKG, old radiological studies, urgent care reports/EKG's, skilled nursing records)? Report findings @ -No old charts were reviewed Differential Diagnosis (chest pain, altered mental status, abdominal pain women, abdominal pain men, vaginal bleeding, weakness, fever, dyspnea, syncope, headache, dizziness, GI bleed, back pain, seizure, CVA, palpatations, mental health, musculoskeletal)? @ -Differential Abdominal Pain Women: Appendicitis, Cholecystitis, diverticulosis, ischemic bowel, pancreatitis, hepatitis, UTI, gastroenteritis, AAA, incarcerated hernia, bowel obstruction, constipation, inflammatory bowel, hepatitis, peptic ulcer disease, splenic infarction, perforated viscus, vulvitis, ovarian torsion, PID, kidney stone, placenta abruption, this is not meant to be an all-inclusive list EKG interpreted by me (3pts min.). @ -None X-rays interpreted by me (1pt min.). @ -None done CT interpreted by me (1pt min.). @ -CT abdomen pelvis negative for acute process. U/S interpreted by me (1pt. min.). @ -None done What testing was considered but not performed or refused? (CT, X-rays, U/S, labs)? Why? @ -None What meds were considered but not given or refused? Why? @ -Patient refused antiemetic or analgesic medications. Did you discuss the management of the patient with other professionals (professionals i.e. , PA, SURVEYING OR SPATIAL SCIENCE TECHNICIAN, lab, RT, psych nurse, psychiatric social worker supervisor, marketing database consultant, teacher, staff readiness officer, manager rn case)? Give summary @ -No Was smoking cessation discussed for >3mins.? @ -No Was critical care preformed (if so, how long)? @ -No Were there social determinants of health that impacted care today? How? (Homelessness, low income, unemployed, alcoholism, drug addiction, transportation, low edu. Level, literacy, decrease access to med. care, senior living, rehab)? @ -No Was there de-escalation of care discussed even if they declined (Discuss DNR or withdrawal of care, Hospice)? DNR status @ -No What co-morbidities impacted this encounter? (DM, HTN, Smoking, COPD, CAD, Cancer, CVA, ARF, Chemo, Hep., AIDS, mental health diagnosis, sleep apnea, morbid obesity)? @ -Hypertension, diabetes Was patient admitted / discharged? Hospital course, mention meds given and route, prescriptions, significant lab abnormalities, going to OR and other pertinent info. @ -Discharge. 48-year-old female presented to the ER with a chief complaint of abdominal pain. History and physical exam completed. Vitals stable. Patient in no signs of acute distress and nontoxic-appearing. Mild tenderness to left lower quadrant with normal bowel sounds. Laboratory studies obtained unremarkable. CT abdomen pelvis performed due to focal abdominal tenderness which is negative for acute process. Patient refused analgesic or antiemetic medications. Upon reevaluation, patient resting comfortably in exam room playing on phone. Results discussed with patient, all questions answered. Advised close follow-up with PCP. I also advised patient to follow-up with GI, Dr. Hoyos, referral given. Return parameters discussed. Patient discharged in stable condition. Patient verbally expressed understanding and agreement care sneha valdovinos. Case discussed with ED attending, Dr. Mcnair. Undiagnosed new problem with uncertain prognosis? @ -No Drug Therapy requiring intensive monitoring for toxicity (Heparin, Nitro, I nsulin, Cardizem)? @ -No Were any procedures done? @ -No Diagnosis/symptom? @ -Abdominal pain Acute, or Chronic, or Acute on Chronic? @ -Acute Uncomplicated (without systemic symptoms) or Complicated (systemic symptoms)? @ -Uncomplicated Side effects of treatment? @ -No Exacerbation, Progression, or Severe Exacerbation? @ -No Poses a threat to life or bodily function? How? (Chest pain, USA, CT, pneumonia, PE, COPD, DKA, ARF, appy, cholecystitis, CVA, Diverticulitis, Homicidal, Suicidal, threat to staff... and all critical care pts) @ -No - Lab Data Result diagrams: 09/03/23 14:25 09/03/23 14:25 Lab Results 09/03/23 09/03/23 09/03/23 Range/Units 14:25 14:25 14:25 WBC 6.5 (3.8-10.6) k/uL RBC 4.17 (3.80-5.40) m/uL Hgb 12.8 (11.4-16.0) gm/dL Hct 37.6 (34.0-46.0) % MCV 90.4 (80.0-100.0) fL MCH 30.6 (25.0-35.0) pg MCHC 33.9 (31.0-37.0) g/dL RDW 12.6 (11.5-15.5) % Plt Count 313 (150-450) k/uL MPV 7.4 Neutrophils % 59 % Lymphocytes % 33 % Monocytes % 5 % Eosinophils % 1 % Basophils % 1 % Neutrophils # 3.8 (1.3-7.7) k/uL Lymphocytes # 2.1 (1.0-4.8) k/uL Monocytes # 0.3 (0-1.0) k/uL Eosinophils # 0.1 (0-0.7) k/uL Basophils # 0.0 (0-0.2) k/uL Sodium 138 (137-145) mmol/L Potassium 3.7 (3.5-5.1) mmol/L Chloride 108 H (98-107) mmol/L Carbon Dioxide 25 (22-30) mmol/L Anion Gap 5 mmol/L BUN 15 (7-17) mg/dL Creatinine 0.52 (0.52-1.04) mg/dL Est GFR (CKD-EPI)AfAm >90 (>60 ml/min/1.73 sqM) Est GFR (CKD-EPI)NonAf >90 (>60 ml/min/1.73 sqM) Glucose 107 H (74-99) mg/dL Plasma Lactic Acid Cyril 0.8 (0.7-2.0) mmol/L Calcium 9.4 (8.4-10.2) mg/dL Total Bilirubin 0.6 (0.2-1.3) mg/dL AST 18 (14-36) U/L ALT 14 (4-34) U/L Alkaline Phosphatase 40 (38-126) U/L Total Protein 6.5 (6.3-8.2) g/dL Albumin 4.2 (3.5-5.0) g/dL Amylase 50 (30-110) U/L Lipase 87 (23-300) U/L - Radiology Data Radiology results: report reviewed, image reviewed Disposition Clinical Impression: Abdominal pain Disposition: HOME SELF-CARE Condition: Stable Instructions (If sedation given, give patient instructions): Abdominal Pain (ED) Additional Instructions: Please follow-up with Dr. Hoyos. Return to the ER for any new or worsening symptoms. Is patient prescribed a controlled substance at d/c from ED?: No Referrals: Ratna Herron FNPBC [Primary Care Provider] - 1-2 days Viktoriya Hoyos MD [STAFF PHYSICIAN] - 1-2 days Time of Disposition: 15:44
--- NOTE | 2023-09-03 15:36 | CT ---
EXAMINATION TYPE: CT abdomen pelvis w con DATE OF EXAM: 09/03/2023 COMPARISON: 10/09/2019 HISTORY: LUQ abdominal pain. Constipation. CT DLP: 1183.2 mGycm Automated exposure control for dose reduction was used. TECHNIQUE: Helical acquisition of images was performed from the lung bases through the pelvis. CONTRAST: Performed without Oral Contrast and with IV Contrast, patient injected with 100 ml mL of Isovue 300. FINDINGS: The lung bases are clear. The gallbladder is normal without distention, wall thickening, pericholecystic fluid or gallstones. T here is no biliary ductal dilatation. There is no focal mass or organomegaly involving the liver, pancreas, spleen or adrenal glands. There is no solid renal mass or hydronephrosis and there is homogeneous contrast enhancement of the r enal parenchyma. The caliber the abdominal aorta is normal is no retroperitoneal adenopathy or hemorr laura. The bowel loops are normal in caliber and there is no evidence of dilatation or obstruction. No infla mmatory changes are identified in the bowel wall or mesentery. There is no free intraperitoneal air or fluid. No pelvic mass, free fluid, abscess or adenopathy. Stable 2.3 cm left adnexal cyst The osseous structures and soft tissues are intact. IMPRESSION: No significant abnormality seen.
[2023-09-03 15:54] VITALS: BP 111/73; PULSE 60; RESP 18; TEMP 97.9
== END 2023-09-03 15:54 | disposition home or self-care (01) ==
LOC: EC 13:56
DX: R10.32 Left lower quadrant pain (principal); Z88.8 Allergy status to other drugs, medicaments and biological substances; Z87.891 Personal history of nicotine dependence
CPT/HCPCS: 36415; 80053; 82150; 83605; 83690; 85025; 74177; 99284; 96360; Q9967

== ENCOUNTER → 2023-12-02 | Outpatient (CLI) | payer OTHER ==
--- NOTE | 2023-12-02 10:05 | XR ---
EXAMINATION TYPE: XR shoulder complete 3 views RT DATE OF EXAM: 12/02/2023 Comparison: None Clinical History: 48-year-old female pain, S46.911A muscle strain Findings: There is severe degenerative change at the AC joint with joint space narrowing and bulky marginal spu rring. Subacromial space is preserved. There is slight sclerosis of the greater tuberosity. Glenohume ral joint appears intact. Visualized right hemithorax is clear. No acute fracture, subluxation, or di slocation. Impression: 1. 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 2. Some sclerosis at the greater tuberosity which may be seen with chronic rotator cuff tendinopathy. 3. No acute osseous abnormality seen. [facility], , 12/02/2023 10:02 AM
== END | disposition home or self-care (01) ==
LOC: RADXRMAIN 09:22
PROVIDERS: ATTEND Emergency Medicine

== ENCOUNTER → 2023-12-22 | Outpatient (CLI) | payer OTHER ==
--- NOTE | 2023-12-22 23:09 | MR ---
EXAMINATION TYPE: MR shoulder RT wo con DATE OF EXAM: 12/22/2023 COMPARISON: Right shoulder x-ray December 02, 2023 HISTORY: Right shoulder pain that shoots into Rt arm x1 month, difficult to raise arm, Work injury TECHNIQUE: Multiplanar, multisequence imaging of the right shoulder is performed without contrast. FINDINGS: Rotator Cuff: Intact supraspinatus and infraspinatus tendons. Intact subscapularis tendon with surrou nding fluid. Rotator cuff muscle bulk is preserved. Acromioclavicular Joint: Moderate to severe narrowing and spurring at the acromioclavicular joint wit h loss of underlying fat plane. Glenohumeral Joint: Small sized effusion. No significant spurring. Labrum: The labrum appears grossly intact given limitation of non-arthrogram study. Biceps Tendon: The long head of biceps is in normal location within bicipital groove. Bone marrow signal: No focal abnormal marrow signal is appreciated. Other: Some fluid signal in the subdeltoid and subacromial bursa is present. IMPRESSION: 1. Moderate to severe AC joint arthropathy with suggestion of underlying impingement. Correlate clini hayley. 2. No rotator cuff or labral tear is seen. 3. Mild subdeltoid and subacromial bursitis. [facility], Workstation: [id number], 12/22/2023 11:06 PM
== END | disposition home or self-care (01) ==
LOC: RADMRIMAIN 15:10
PROVIDERS: ATTEND Emergency Medicine

== ENCOUNTER → 2024-05-09 | Outpatient (CLI) | payer OTHER ==
--- NOTE | 2024-05-10 08:32 | MR ---
EXAMINATION TYPE: MR shoulder RT wo con DATE OF EXAM: 05/09/2024 7:20 PM COMPARISON: None. 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 TECHNIQUE: Multiplanar multispin echo imaging of the right shoulder was performed. 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 No evidence for full-thickness tear. The subscapularis constituent of the rotator c uff is intact. Bursa: No bursal effusion or thickening is seen. Musculature: There is no muscular tear, contusion, or atrophy. Acromioclavicular joint : Lateral downsloping of the acromion with subacromial spur resulting in impi ngement. Moderate to severe AC joint arthropathy. Osseous structures : There are no fractures or regions of abnormal bone marrow signal intensity. Long biceps tendon : The biceps tendon is normally situated within the bicipital groove. No complete or partial biceps tendon tear is present. Glenohumeral Joint fluid : There is no glenohumeral joint effusion. Cartilage and Bone : No focal hyaline cartilage defects are noted. No Hill-Sachs, reverse Hill-Sachs, or bony Bankart lesions are seen. Labrum : There are no SLAP or soft tissue Bankart lesions. No paralabral cysts are seen. OTHER FINDINGS : none IMPRESSION: 1. There is thickening and heterogeneity of the supraspinatus tendon compatible with chronic tendinop athy. No evidence for full-thickness tear. Subacromial impingement as noted above. [facility], , 05/10/2024 8:30 AM
== END | disposition home or self-care (01) ==
LOC: RADMRIMAIN 18:47
PROVIDERS: ATTEND Orthopaedic Surgery
DX: M25.811 Other specified joint disorders, right shoulder (principal); M75.41 Impingement syndrome of right shoulder